=== PATIENT | male | born 1935 | race Caucasian/White ===

== ENCOUNTER → 2021-06-19 14:48 | Outpatient (BNVA) | payer OTHER, SELFPAY | PROVIDERS: Referring Provider Specialist; Visit Provider Internal Medicine | DX: E21.3 Hyperparathyroidism, unspecified (principal); N18.9 Chronic kidney disease, unspecified; Z87.81 Personal history of (healed) traumatic fracture; Z87.891 Personal history of nicotine dependence | CPT/HCPCS: 99204 ==

== ENCOUNTER 2021-06-19 15:45 | Outpatient (CLI) | payer MEDICARE, SELFPAY ==
[2021-06-19 16:39] LABS: Alanine Aminotransferase 12 U/L (0-41); Albumin Level 4.2 g/dL (3.5-5.2); Alkaline Phosphatase 103 IU/L (40-130); Anion Gap 13.4 (5-19); Aspartate Amino Transferase 14 U/L (0-40); Blood Urea Nitrogen 29 mg/dL (8-23); Carbon Dioxide 25 mmol/L (22-29); Chloride 108 mmol/L (98-107); Globulin 2.7 g/dL (1.3-4.6); Glucose 112 mg/dL (65-115); Osmolality Calculated 301 mOsm/kg (285-295); Potassium 4.4 mmol/L (3.5-5.1); Sodium 142 mmol/L (136-145); Total Bilirubin 0.2 mg/dL (0.15-1.2); Total Protein 6.9 g/dL (6.6-8.7)
[2021-06-19 16:47] LABS: Calcium 9.8 mg/dL (8.5-10.5)
[2021-06-19 16:51] LABS: Parathyroid Hormone 83.2 pg/mL (15-65)
[2021-06-19 16:54] LABS: 25 Hydroxy Vitamin D 43 ng/mL (30-100)
== END 2021-06-19 15:46 | disposition home or self-care (01) ==
LOC: LAB 15:51
PROVIDERS: Visit Provider Internal Medicine
DX: E21.3 Hyperparathyroidism, unspecified (principal)
CPT/HCPCS: 36415; 80053; 82306; 82310; 83970

== ENCOUNTER → 2021-08-22 14:08 | Outpatient (BNVA) | payer MEDICARE, SELFPAY | PROVIDERS: Visit Provider Internal Medicine | DX: E21.3 Hyperparathyroidism, unspecified (principal); Z87.81 Personal history of (healed) traumatic fracture | CPT/HCPCS: 99214 ==

== ENCOUNTER → 2022-02-05 10:36 | Outpatient (BNVA) | payer MEDICARE, SELFPAY | PROVIDERS: Visit Provider Internal Medicine | DX: E21.3 Hyperparathyroidism, unspecified (principal); E03.9 Hypothyroidism, unspecified; Z87.81 Personal history of (healed) traumatic fracture; Z87.891 Personal history of nicotine dependence | CPT/HCPCS: 84439; 84443; 99214 ==

== ENCOUNTER → 2023-05-30 09:41 | Outpatient (BNVA) | payer MEDICARE, SELFPAY | PROVIDERS: Visit Provider Internal Medicine | DX: E03.9 Hypothyroidism, unspecified (principal); E21.3 Hyperparathyroidism, unspecified; Z87.81 Personal history of (healed) traumatic fracture | CPT/HCPCS: 99214 ==